=== PATIENT | female | born 1930 | race Two or more races ===

== ENCOUNTER 2016-07-23 14:20 | Emergency (ER) | payer OTHER ==
[~2016-07-23] VITALS: Ht 154.9 cm; Wt 54.4 kg
[2016-07-23] MEDS ORDERED: ONDANSETRON HCL/PF 4 MG/2 ML VIAL IV ONE (15:00)
[2016-07-23] MEDS ORDERED: HYDROCODONE/APAP 5/325MG 1 EACH TABLET PO ONE (15:00)
[2016-07-23] MEDS ORDERED: ONDANSETRON 4 MG TAB.RAPDIS PO ONE (15:00)
[2016-07-23] MEDS ORDERED: MORPHINE SULFATE INJ 2 MG/ML DISP.SYRIN IV ONE (15:00)
[2016-07-23] MEDS: MORPHINE SULFATE INJ 2 MG/ML DISP.SYRIN IV ONE ×2 (15:15→15:25)
[2016-07-23] MEDS ORDERED: ONDANSETRON HCL/PF 4 MG/2 ML VIAL ONE (15:15)
[2016-07-23] MEDS ORDERED: MORPHINE SULFATE INJ 2 MG/ML DISP.SYRIN ONE (15:15)
[2016-07-23] MEDS: ONDANSETRON HCL/PF - ER 4 MG/2 ML VIAL IV ONE ×2 (15:15→15:23)
[2016-07-23 15:46] LABS: KETONES,URINE NEGATIVE (NEGATIVE); LEUKOCYTE ESTERASE ,URINE NEGATIVE (NEGATIVE)
[2016-07-23 15:48] LABS: ADD UA MICROSCOPIC YES
[2016-07-23 15:49] LABS: ADD URINE CULTURE NO; RBC,URINE 0-2 /HPF (0-2); WBC,URINE 0-2 /HPF (0-3)
[2016-07-23 15:52] LABS: BASOPHILS # (AUTO) 0.1 /CMM (0.0-0.2); BASOPHILS % (AUTO) 0.9 % (0.0-2.0); DIFF TOTAL % 100 %; EOSINOPHILS # (AUTO) 0.1 /CMM (0.0-0.7); EOSINOPHILS % (AUTO) 2.7 % (0.0-6.0); HEMATOCRIT 40 % (33-45); HEMOGLOBIN 12.9 g/dL (11.5-14.8); LYMPHOCYTES # (AUTO) 1.2 /CMM (0.8-4.8); LYMPHOCYTES % (AUTO) 22.5 % (20.0-44.0); MEAN CORPUSCULAR HEMOGLOBIN 30 PG (26.0-33.0); MEAN CORPUSCULAR HGB CONC 33 g/dl (31.0-36.0); MEAN CORPUSCULAR VOLUME 91 fL (82-100); MONOCYTES # (AUTO) 0.4 /CMM (0.1-1.30); MONOCYTES % (AUTO) 8.1 % (2.0-12.0); NEUTROPHILS # (AUTO) 3.6 /CMM (1.8-8.9); NEUTROPHILS % (AUTO) 65.8 % (43.0-81.0); PLATELET COUNT (AUTO) 164 /CMM (150-450); RED BLOOD CELL COUNT(AUTO) 4.37 MIL/uL (4.0-5.2); WHITE BLOOD COUNT (AUTO) 5.5 K/uL (4.3-11.0)
[2016-07-23 15:55] LABS: CALCIUM, SERUM 9.5 mg/dL (8.5-10.1); CREATININE 0.8 mg/dL (0.6-1.3)
[2016-07-23 16:02] LABS: ALBUMIN 3.9 g/dL (3.4-5.0); BILIRUBIN,DIRECT 0.1 mg/dL (0.0-0.2); BILIRUBIN,TOTAL 0.5 mg/dL (0.2-1.0); INDIRECT BILIRUBIN 0.4 mg/dL (0.0-1.1); TOTAL PROTEIN, SERUM 7.4 g/dL (6.4-8.2)
[2016-07-23 17:17] VITALS: BP 131/74
== END 2016-07-23 17:18 | disposition home or self-care (01) ==
LOC: ER 14:22
DX: N81.10 Cystocele, unspecified (principal); I10 Essential (primary) hypertension; Z88.8 Allergy status to other drugs, medicaments and biological substances
CPT/HCPCS: 36415; 76856; 80048; 80076; 81001; 83690; 85025; 96374; 96375; 99285; A4606; J2270; J2405; 81000-TC; Z7610

== ENCOUNTER 2016-07-25 10:13 | Emergency (ER) | payer OTHER ==
[~2016-07-25] VITALS: Ht 162.6 cm; Wt 61.2 kg
[2016-07-25] MEDS ORDERED: MORPHINE SULFATE INJ 2 MG/ML DISP.SYRIN IM ONE (10:30)
[2016-07-25] MEDS ORDERED: ONDANSETRON HCL/PF 4 MG/2 ML VIAL IVP ONE (10:30)
[2016-07-25 10:48] LABS: BASOPHILS # (AUTO) 0.1 /CMM (0.0-0.2); DIFF TOTAL % 100 %; EOSINOPHILS # (AUTO) 0.2 /CMM (0.0-0.7); EOSINOPHILS % (AUTO) 3.6 % (0.0-6.0); HEMATOCRIT 36 % (33-45); HEMOGLOBIN 11.8 g/dL (11.5-14.8); LYMPHOCYTES % (AUTO) 17.6 % (20.0-44.0); MEAN CORPUSCULAR HEMOGLOBIN 30 PG (26.0-33.0); MEAN CORPUSCULAR HGB CONC 33 g/dl (31.0-36.0); MEAN CORPUSCULAR VOLUME 90 fL (82-100); MONOCYTES # (AUTO) 0.4 /CMM (0.1-1.30); MONOCYTES % (AUTO) 7.4 % (2.0-12.0); NEUTROPHILS # (AUTO) 3.9 /CMM (1.8-8.9); NEUTROPHILS % (AUTO) 70.4 % (43.0-81.0); PLATELET COUNT (AUTO) 189 /CMM (150-450); RED BLOOD CELL COUNT(AUTO) 3.94 MIL/uL (4.0-5.2); WHITE BLOOD COUNT (AUTO) 5.6 K/uL (4.3-11.0)
[2016-07-25 10:51] LABS: ANION GAP 10 (5-14); CALCIUM, SERUM 8.1 mg/dL (8.5-10.1); CARBON DIOXIDE 27 mmol/L (21-32); CHLORIDE 100 mmol/L (98-107); CREATININE 0.9 mg/dL (0.6-1.3); GLUCOSE 104 mg/dL (74-106); POTASSIUM 3.8 mmol/L (3.5-5.1); SODIUM SERUM 133 mmol/L (136-145); UREA NITROGEN, BLOOD 14 mg/dL (7-18)
[2016-07-25 10:54] LABS: INR 0.99 (0.87-1.13); PROTHROMBIN TIME 10.4 SECS (9.5-12.7)
[2016-07-25 10:57] LABS: ALANINE AMINOTRANSFERASE 22 U/L (12-78); ALBUMIN 3.6 g/dL (3.4-5.0); ASPARTATE AMINOTRANSFERASE 26 U/L (15-37); BILIRUBIN,DIRECT 0.1 mg/dL (0.0-0.2); BILIRUBIN,TOTAL 0.4 mg/dL (0.2-1.0); INDIRECT BILIRUBIN 0.3 mg/dL (0.0-1.1); TOTAL PROTEIN, SERUM 6.5 g/dL (6.4-8.2)
[2016-07-25 10:58] LABS: TROPONIN I < 0.017 ng/mL (0.00-0.056)
[2016-07-25] MEDS ORDERED: ONDANSETRON HCL/PF 4 MG/2 ML VIAL ONE (11:07)
[2016-07-25] MEDS ORDERED: MORPHINE SULFATE INJ 2 MG/ML DISP.SYRIN ONE (11:07)
[2016-07-25 12:06] LABS: ERYTHROCYTE SEDIMENTATION RATE 10 MM/HR (0-30)
[2016-07-25 13:42] VITALS: BP 135/81
== END 2016-07-25 13:43 | disposition home or self-care (01) ==
LOC: ER 10:15
DX: R51 Headache (principal); I10 Essential (primary) hypertension; R79.1 Abnormal coagulation profile; Z88.8 Allergy status to other drugs, medicaments and biological substances
CPT/HCPCS: 36415; 70450; 71010; 80048; 80076; 84484; 85025; 85652; 85730; 93005; 96372; 96374; 99285; A4606; J2270; J2405; Z7610

== ENCOUNTER 2018-01-05 05:47 | Emergency (ER) | payer SELFPAY ==
[~2018-01-05] VITALS: Ht 162.6 cm; Wt 64.0 kg
--- NOTE | 2018-01-05 06:04 | NUR ---
PT AA/OX 4 COMPLAINING OF VAGINAL PAIN SINCE LAST NIGHT. NO DIFFICULTY IN VOIDING. NO S/S SOB. SKIN PINK, WARM, DRY. VSS. NAD. STABLE CONDITION. DENIES ABDOMINAL PAIN. MD AT BEDSIDE. WILL CONTINUE TO MONITOR.
[2018-01-05] MEDS ORDERED: IV NS 0.9% 500 ML BAG IV ONE ×2 (06:30)
[2018-01-05 06:45] LABS: APPEARANCE,URINE CLEAR (CLEAR); BILIRUBIN,URINE NEGATIVE (NEGATIVE); BLOOD, URINE NEGATIVE Ery/uL (NEGATIVE); COLOR,URINE YELLOW (YELLOW); KETONES,URINE NEGATIVE (NEGATIVE); LEUKOCYTE ESTERASE ,URINE NEGATIVE (NEGATIVE); NITRITE, URINE NEGATIVE (NEGATIVE); PROTEIN,URINE NEGATIVE (NEGATIVE); UGLUCOSE NEGATIVE (NEGATIVE); UROBILINOGEN,URINE 0.2 EU/dL (0.2)
--- NOTE | 2018-01-05 06:49 | NUR ---
MD AT BEDSIDE FOR PELVIC EXAM
[2018-01-05 06:50] LABS: BASOPHILS % (AUTO) 0.6 % (0.0-2.0); EOSINOPHILS % (AUTO) 6.7 % (0.0-6.0); HEMATOCRIT 39 % (33-45); HEMOGLOBIN 12.8 g/dL (11.5-14.8); LYMPHOCYTES # (AUTO) 1.1 /CMM (0.8-4.8); LYMPHOCYTES % (AUTO) 19.9 % (20.0-44.0); MEAN CORPUSCULAR HEMOGLOBIN 31 PG (26.0-33.0); MEAN CORPUSCULAR HGB CONC 33 g/dl (31.0-36.0); MEAN CORPUSCULAR VOLUME 93 fL (82-100); MONOCYTES # (AUTO) 0.7 /CMM (0.1-1.30); NEUTROPHILS # (AUTO) 3.3 /CMM (1.8-8.9); NEUTROPHILS % (AUTO) 60.8 % (43.0-81.0); PLATELET COUNT (AUTO) 175 /CMM (150-450); RDW COEFFICIENT OF VARIATION 14.3 (11.5-15.0); RED BLOOD CELL COUNT(AUTO) 4.13 MIL/uL (4.0-5.2); WHITE BLOOD COUNT (AUTO) 5.5 K/uL (4.3-11.0)
[2018-01-05 06:59] LABS: CALCIUM, SERUM 8.5 mg/dL (8.5-10.1); CARBON DIOXIDE 27 mmol/L (21-32); CHLORIDE 106 mmol/L (98-107); CREATININE 0.8 mg/dL (0.6-1.3); GLUCOSE 114 mg/dL (74-106); POTASSIUM 3.4 mmol/L (3.5-5.1); SODIUM SERUM 140 mmol/L (136-145); UREA NITROGEN, BLOOD 28 mg/dL (7-18)
--- NOTE | 2018-01-05 07:17 | NUR ---
ENDORSED TO ONCOMING RN LANI. PT STABLE CONDITION. VSS. NAD.
[2018-01-05] MEDS ORDERED: ACETAMINOPHEN ES 500 MG TABLET ONE (07:58)
[2018-01-05] MEDS ORDERED: ACETAMINOPHEN ES 500 MG TABLET PO ONE (08:00)
--- NOTE | 2018-01-05 08:30 | NUR ---
PAGEFrank DOWNEY, PIPE JEEPER.
--- NOTE | 2018-01-05 09:15 | NUR ---
SAKSHI Burleson at BS talking to patient.
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
--- NOTE | 2018-01-05 10:17 | NUR ---
RENU at BS.
--- NOTE | 2018-01-05 10:50 | NUR ---
[employer] officers Petra and Gianni came to speak to the patient. After they were done speaking to the patient, they informed geriatric social worker that the patient would need to go through the court process in order to start a formal eviction process. They noted that they called APS and that a geriatric social worker would be coming to see the patient at the hospital. They noted that the case was marked as urgent. Informed charge nurse Benson and Dr. Spann.building service worker will also file APS report.
--- NOTE | 2018-01-05 11:27 | NUR ---
CALLED NUTRITION FOR FOOD TRAY, REG DIET NKA
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
--- NOTE | 2018-01-05 14:30 | NUR ---
IV removed. Catheter intact and site benign. Pressure and 4x4 applied to site. No bleeding noted.
[2018-01-05 15:07] VITALS: BP 139/71
--- NOTE | 2018-01-05 15:10 | NUR ---
Patient discharged to home via taxi in stable condition. Written and verbal after care instructions given. Patient verbalizes understanding of instruction.
== END 2018-01-05 15:11 | disposition home or self-care (01) ==
LOC: ER 05:48
DX: R10.2 Pelvic and perineal pain (principal); I10 Essential (primary) hypertension; Z90.89 Acquired absence of other organs; Z90.722 Acquired absence of ovaries, bilateral; Z88.7 Allergy status to serum and vaccine
CPT/HCPCS: 36415; 51701; 74176; 80048; 81001; 85025; 87086; 99285; A4606; J7030; Z7610; 81000-TC

== ENCOUNTER 2018-02-02 08:11 | Emergency (ER) | payer SELFPAY ==
[~2018-02-02] VITALS: Ht 157.5 cm; Wt 59.4 kg
[2018-02-02 08:19] VITALS: BP 149/66
--- NOTE | 2018-02-02 08:20 | NUR ---
VAGINAL BLEED X 1 WEEK. NAD NOTED, VSS, RESP EVEN AND UNLABORED, PT WAS PUT ON MONITOR, AT BS.
== END 2018-02-02 08:38 | disposition home or self-care (01) ==
LOC: ER 08:13
DX: N75.0 Cyst of Bartholin's gland (principal); I10 Essential (primary) hypertension; Z90.89 Acquired absence of other organs; Z90.721 Acquired absence of ovaries, unilateral; Z88.8 Allergy status to other drugs, medicaments and biological substances
CPT/HCPCS: 99283; A4606; Z7610